=== PATIENT | female | born 1985 | race Caucasian/White ===

== ENCOUNTER 2016-11-06 12:54 | Emergency (ER) | payer OTHER ==
[2016-11-06] MEDS ORDERED: HYDROmorphONE/DILAUDID 1 MG/ML SYR IVP ONE (13:24)
[2016-11-06] MEDS ORDERED: ONDANSETRON 4 MG/2 ML VIAL IVP ONE (13:24)
[2016-11-06] MEDS ORDERED: NS 1,000 ML IV ONE (13:24)
[2016-11-06 13:49] LABS: % IMMATURE GRANULYOCYTES 0.3 % (0.0-1.1); ABSOLUTE IMMATURE GRANULOCYTES 0.02 10^3/uL (0.00-0.10); ADD DIFF? NO; ADD MORPH? NO; ADD SCAN? NO; ATYPICAL LYMPHOCYTE FLAG 0 (0-99); FRAGMENT RBC FLAG 10 (0-99); HEMOGLOBIN 14.2 g/dL (12.6-16.3); LEFT SHIFT FLG 0 (0-99); LIPEMIA HEMOLYSIS FLAG 80 (0-99); MEAN CELL HEMOGLOBIN 34.1 pg (27.9-34.1); MEAN CELL VOLUME 103.1 fL (81.5-99.8); MEAN PLATELET VOLUME 10.4 fL (8.7-11.7); PLATELET CLUMPS FLAG 0 (0-99); PLATELET COUNT 208 10^3/uL (150-400); RED BLOOD CELL COUNT 4.17 10^6/uL (4.18-5.33); RED CELL DISTRIBUTION WIDTH 12.4 % (11.5-15.2)
[2016-11-06 14:05] LABS: ALANINE AMINOTRANSFERASE 32 IU/L (9-52); ALBUMIN 4.6 g/dL (3.5-5.0); ALKALINE PHOSPHATASE 79 IU/L (38-126); ANION GAP 10 mEq/L (8-16); ASPARTATE AMINOTRANSFERASE 31 IU/L (14-46); BILIRUBIN,TOTAL 0.5 mg/dL (0.1-1.4); BILIRUBIN-CONJUGATED 0.2 mg/dL (0.0-0.5); BILIRUBIN-UNCONJUGATED 0.3 mg/dL (0.0-1.1); CALCIUM 10.1 mg/dL (8.5-10.4); CARBON DIOXIDE 27 mEq/l (22-31); CHLORIDE 100 mEq/L (97-110); CREATININE 0.9 mg/dL (0.6-1.0); GLOMERULAR FILTRATION RATE > 60; GLUCOSE 77 mg/dL (70-100); POTASSIUM 4.5 mEq/L (3.5-5.2); SODIUM 137 mEq/L (134-144); TOTAL PROTEIN 7.6 g/dL (6.3-8.2)
[2016-11-06] MEDS ORDERED: IOPAMIDOL (ISOVUE-300) 100 ML BTL IV ONE (14:13)
[2016-11-06 15:10] LABS: COLOR PALE YELLOW; LEUKOCYTE ESTERASE,URINE NEGATIVE (NEGATIVE); NITRITE,URINE NEGATIVE (NEGATIVE)
--- NOTE | 2016-11-06 15:44 | EDPHY ---
H & P Stated Complaint: lower abdo pain area since last night. Time Seen by Provider: 11/06/16 13:10 HPI/ROS: Chief complaint: Abdominal pain History of present illness: This is a 31-year-old female with a history of a bowel obstruction necessitating bowel resection who presents to the emergency department for evaluation of abdominal pain. Patient reports the onset of symptoms over the last few days. She denies precipitating factors. Denies alleviating factors. She denies other associated signs or symptoms including no fevers or chills, no nausea, vomiting, diarrhea or constipation, no urinary symptoms, no vaginal discharge. She states this does not feel like the bowel obstruction she had previously. Review of systems: A 10 point review of systems was obtained and other than described above was negative - Personal History LMP (Females 10-55): Now Current Tetanus Diphtheria and Acellular Pertussis (TDAP): No - Medical/Surgical History Hx Asthma: Yes Hx Chronic Respiratory Disease: No Hx Diabetes: No Hx Cardiac Disease: No Hx Renal Disease: No Hx Cirrhosis: No Hx Alcoholism: No Hx HIV/AIDS: No Hx Splenectomy or Spleen Trauma: No Other PMH: pmh- Ovarian cyst, anxiety. 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 Eyes: Pupils equal and round no pallor or injection. ENT, Mouth: Mucous membranes moist. Respiratory: There are no retractions, lungs are clear to auscultation. Cardiovascular: Regular rate and rhythm. Gastrointestinal: Bowel sounds normal. Abdomen is soft, nondistended, nontender. No peritoneal signs. Neurological: Alert and oriented x4. Strength and sensation intact and symmetrical. Skin: Warm and dry, no rashes. Musculoskeletal: Neck is supple nontender. Extremities are symmetrical, full range of motion. Psychiatric: Patient is oriented X 3, there is no agitation. Constitutional: Initial Vital Signs Temperature (C) 36.3 C 11/06/16 13:00 Heart Rate 66 11/06/16 13:00 Respiratory Rate 18 11/06/16 13:00 Blood Pressure 116/64 11/06/16 13:00 O2 Sat (%) 99 11/06/16 13:00 O2 Delivery Mode Room Air O2 (L/minute) 2 Allergies/Adverse Reactions: gluten Allergy (Verified 11/01/14 00:29) Milk Containing Products Allergy (Verified 11/01/14 00:29) Home Medications: Medication Instructions Recorded Anikayl 07/28/16 Magnesium Citrate [Magnesium 300 ml PO ONCE #1 bottle 11/06/16 Citrate 300 ml (*)] Medical Decision Making ED Course/Re-evaluation: Patient discussed with my secondary supervising physician Dr. Carlos Cano. Patient presents to the emergency department for evaluation of abdominal pain. On presentation she is nontoxic. Afebrile and vital signs are stable. Initial physical exam is unremarkable including a benign abdominal exam. Serial abdominal exams are performed and remain unremarkable in the emergency room. Blood studies and urinalysis are unremarkable. CT scan shows constipation with no evidence of obstruction. At this time I do believe patient is appropriate for outpatient management. She is discharged home. Management of her constipation is discussed including the use of magnesium citrate. She is requesting pain management. I have discussed with her that this could exacerbate the underlying problem that she is currently dealing with as this is a constipating medication, she understands this but would like pain management. She is asked to follow up with her primary care doctor this week for recheck. Strict return precautions are given. Patient voiced understanding and agreement with plan. Differential Diagnosis: Included but not limited to bowel obstruction, colitis, diverticulitis, biliary tract disease, pancreatitis, urinary tract disease - Data Points Laboratory Results: Laboratory Results 11/06/16 13:40 11/06/16 13:40 11/06/16 11/06/16 11/06/16 14:00 13:40 13:40 WBC RBC Hgb Hct MCV MCH MCHC RDW Plt Count MPV Neut % (Auto) Lymph % (Auto) [place] % (Auto) Eos % (Auto) Baso % (Auto) Nucleat RBC Rel Count Absolute Neuts (auto) Absolute Lymphs (auto) Absolute Monos (auto) Absolute Eos (auto) Absolute Basos (auto) Absolute Nucleated RBC Immature Gran % Immature Gran # Sodium 137 mEq/L mEq/L (134-144) Potassium 4.5 mEq/L mEq/L (3.5-5.2) Chloride 100 mEq/L mEq/L (97-110) Carbon Dioxide 27 mEq/l mEq/l (22-31) Anion Gap 10 mEq/L mEq/L (8-16) BUN 11 mg/dL mg/dL (7-23) Creatinine 0.9 mg/dL mg/dL (0.6-1.0) Estimated GFR > 60 Glucose 77 mg/dL mg/dL (70-100) Calcium 10.1 mg/dL mg/dL (8.5-10.4) Total Bilirubin 0.5 mg/dL mg/dL (0.1-1.4) Conjugated Bilirubin 0.2 mg/dL mg/dL (0.0-0.5) Unconjugated Bilirubin 0.3 mg/dL mg/dL (0.0-1.1) AST 31 IU/L IU/L (14-46) ALT 32 IU/L IU/L (9-52) Alkaline Phosphatase 79 IU/L IU/L (38-126) Total Protein 7.6 g/dL g/dL (6.3-8.2) Albumin 4.6 g/dL g/dL (3.5-5.0) Lipase 146.0 IU/L IU/L (23-300) Beta HCG, Qual NEGATIVE Urine Color PALE YELLOW Urine Appearance CLEAR Urine pH 7.0 (5.0-7.5) Ur Specific [place] 1.011 (1.002-1.030) Urine Protein NEGATIVE (NEGATIVE) Urine Ketones NEGATIVE (NEGATIVE) Urine Blood NEGATIVE (NEGATIVE) Urine Nitrate NEGATIVE (NEGATIVE) Urine Bilirubin NEGATIVE (NEGATIVE) Urine Urobilinogen NEGATIVE EU EU (0.2-1.0) Ur Leukocyte Esterase NEGATIVE (NEGATIVE) Ur Culture Indicated? NOT INDICATED (NI) Urine Glucose NEGATIVE (NEGATIVE) 11/06/16 13:40 WBC 6.36 10^3/uL 10^3/uL (3.80-9.50) RBC 4.17 10^6/uL L 10^6/uL (4.18-5.33) Hgb 14.2 g/dL g/dL (12.6-16.3) Hct 43.0 % % (38.0-47.0) MCV 103.1 fL H fL (81.5-99.8) MCH 34.1 pg pg (27.9-34.1) MCHC 33.0 g/dL g/dL (32.4-36.7) RDW 12.4 % % (11.5-15.2) Plt Count 208 10^3/uL 10^3/uL (150-400) MPV 10.4 fL fL (8.7-11.7) Neut % (Auto) 66.2 % % (39.3-74.2) Lymph % (Auto) 21.7 % % (15.0-45.0) Sumner % (Auto) 8.0 % % (4.5-13.0) Eos % (Auto) 3.0 % % (0.6-7.6) Baso % (Auto) 0.8 % % (0.3-1.7) Nucleat RBC Rel Count 0.0 % % (0.0-0.2) Absolute Neuts (auto) 4.21 10^3/uL 10^3/uL (1.70-6.50) Absolute Lymphs (auto) 1.38 10^3/uL 10^3/uL (1.00-3.00) Absolute Monos (auto) 0.51 10^3/uL 10^3/uL (0.30-0.80) Absolute Eos (auto) 0.19 10^3/uL 10^3/uL (0.03-0.40) Absolute Basos (auto) 0.05 10^3/uL 10^3/uL (0.02-0.10) Absolute Nucleated RBC 0.00 10^3/uL 10^3/uL (0-0.01) Immature Gran % 0.3 % % (0.0-1.1) Immature Gran # 0.02 10^3/uL 10^3/uL (0.00-0.10) Sodium Potassium Chloride Carbon Dioxide Anion Gap BUN Creatinine Estimated GFR Glucose Calcium Total Bilirubin Conjugated Bilirubin Unconjugated Bilirubin AST ALT Alkaline Phosphatase Total Protein Albumin Lipase Beta HCG, Qual Urine Color Urine Appearance Urine pH Ur Specific [place] Urine Protein Urine Ketones Urine Blood Urine Nitrate Urine Bilirubin Urine Urobilinogen Ur Leukocyte Esterase Ur Culture Indicated? Urine Glucose Medications Given: Discontinued Medications Hydrocodone Bitart/Acetaminophen ([place] 5/325mg Prepack#6) 1 btl TAKEHOME EDNOW ONE Stop: 11/06/16 16:08 Last Admin: 11/06/16 16:11 Dose: 1 btl Hydromorphone HCl (Dilaudid) 1 mg IVP EDNOW ONE Stop: 11/06/16 13:25 Last Admin: 11/06/16 13:43 Dose: 1 mg Sodium Chloride (Ns) 1,000 mls @ 0 mls/hr IV ONCE ONE PRN Reason: Wide Open Stop: 11/06/16 13:25 Last Admin: 11/06/16 13:43 Dose: 1,000 mls Ondansetron HCl (Zofran) 4 mg IVP EDNOW ONE Stop: 11/06/16 13:25 Last Admin: 11/06/16 13:43 Dose: 4 mg Departure - Departure Disposition: Home, Routine, Self-Care Clinical Impression: Abdominal pain Qualifiers: Abdominal location: unspecified location Qualified Code(s): R10.9 - Unspecified abdominal pain Constipation Qualifiers: Constipation type: unspecified constipation type Qualified Code(s): K59.00 - Constipation, unspecified Condition: Good Instructions: Constipation (ED), Abdominal Pain (ED) Additional Instructions: Follow-up with her primary care doctor in 1-2 days for recheck Use magnesium citrate as directed If symptoms worsen or new symptoms develop return to the emergency department for recheck Referrals: MAGED KAMINSKI [Other] - As per Instructions Rod Ayala MD [Medical Doctor] - As per Instructions Prescriptions: Magnesium Citrate [Magnesium Citrate 300 ml (*)] 300 ml PO ONCE #1 bottle
[2016-11-06 16:04] VITALS: PULSE 50; RESP 20; TEMP 98.2; O2SAT 98
[2016-11-06] MEDS ORDERED: HYDROCOD/APAP 5/325 PREPACK#6 BTL TAKEHOME ONE (16:07)
[2016-11-06 16:16] VITALS: BP 102/74
== END 2016-11-06 16:23 | disposition home or self-care (01) ==
DX: K59.00 Constipation, unspecified (principal); J45.909 Unspecified asthma, uncomplicated; Z87.891 Personal history of nicotine dependence
CPT/HCPCS: 96374; J1170; J2405; Q9967

== ENCOUNTER 2018-11-21 10:09 | Emergency (ER) | payer MEDICAID, OTHER ==
--- NOTE | 2018-11-21 10:24 | EDPHY ---
H & P Stated Complaint: ARTIS/blurry vision Time Seen by Provider: 11/21/18 10:23 HPI/ROS: HPI: This is 33-year-old female who presents with Chief Complaint: Headache, blurry vision Location: Frontal Quality: Pressure, headache, blurry vision Duration: years Signs and Symptoms: no fever, no nausea, no vomiting, no photophobia, no noise sensitivity, no neck stiffness, no ear pain, no tinnitus, no nasal congestion, no sinus pressure, no weakness, no radiation, no aura Timing: Worse over the last week Severity: Moderate Context: Patient reports for the last several years she has been having frontal headaches with bilateral pressure behind her eyes that waxes and wanes and accompanied with blurry vision described as floaters and a "snow globe affect. Patient reports that the symptoms have increased over the last week. She has not followed with Neurology and has only follow-up with holistic medicine. She believes that she may have multiple sclerosis but has never had an MRI. She reports that she has "gut issues" and had colectomy in 2014 and then last year medical management of small-bowel obstruction while in [place]. Patient denies any change in bowel or bladder habits. She has no weakness, radiation, fevers. The headaches are not the worst of her life. She denies any weight loss, speech changes, vision loss, eye pain, hearing loss, tinnitus, rashes, nausea, vomiting, fever. History of migraine headaches. Reports that she has seen pcp and a neurologist for similar sx with no dx. Patient reports that her last eye exam was several years ago and she is supposed to wear corrective lenses which she does not wear. Denies worse headache of life. Modifying Factors: Comment: ROS: A comprehensive 10 system review of systems is otherwise negative aside from elements mentioned in the history of present illness. 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 Currently on menses. Social history: Former smoker. Family history noncontributory. CONSTITUTIONAL: Tearful, well-appearing, adult white female, awake and alert, no obvious distress HEENT: Atraumatic and normocephalic, PERRL, EOMI. Nares patent; no rhinorrhea; no nasal mucosal edema. Tympanic membranes clear. Oropharynx clear, no exudate and moist pink mucosa. Airway patent. No lymphadenopathy. No meningismus. Cardiovascular: Normal S1/S2, regular rate, regular rhythm, without murmur rub or gallop. PULMONARY/CHEST: Symmetrical and nontender. Clear to auscultation bilaterally. Good air movement. No accessory muscle usage. ABDOMEN: Soft, nondistended, nontender, no rebound, no guarding, no peritoneal signs, no masses or organomegaly. No CVAT. EXTREMITIES: 2/2 pulses, strength 5/5, no deformities, no clubbing, no cyanosis or edema. NEUROLOGICAL: no focal neuro deficits. GCS 15. Cranial nerves 2-12 grossly intact. Normal Romberg testing. Speech clear. SKIN: Warm and dry, tattoos present on right forearm, no erythema. no rash. Good capillary refill. Source: Patient Exam Limitations: No limitations - Personal History LMP (Females 10-55): 1-7 Days Ago Current Tetanus/Diphtheria Vaccine: Unsure - Medical/Surgical History Hx Asthma: Yes Hx Chronic Respiratory Disease: No Hx Diabetes: No Hx Cardiac Disease: No Hx Renal Disease: No Hx Cirrhosis: No Hx Alcoholism: No Hx HIV/AIDS: No Hx Splenectomy or Spleen Trauma: No Other PMH: pmh- Ovarian cyst, anxiety. 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 - Social History Smoking Status: Former smoker Constitutional: Initial Vital Signs Temperature (C) 36.6 C 11/21/18 10:12 Heart Rate 85 11/21/18 10:12 Respiratory Rate 16 11/21/18 10:12 Blood Pressure 116/77 11/21/18 10:12 O2 Sat (%) 97 11/21/18 10:12 O2 Delivery Mode Room Air Allergies/Adverse Reactions: gluten Allergy (Verified 11/21/18 10:15) Milk Containing Products Allergy (Verified 11/21/18 10:15) Home Medications: Medication Instructions Recorded Pia 07/28/16 Magnesium Citrate [Magnesium 300 ml PO ONCE #1 bottle 11/06/16 Citrate 300 ml (*)] Medical Decision Making - Diagnostics Imaging Results: Imaging Impressions Brain MRI 11/21/18 10:32 Impression: 1. Normal MRI brain. No change since prior study. If symptoms worsen, additional imaging may be necessary. Findings discussed with Racquel Orellana PAC at 13:47 hour, 11/21/2018. Cervical Spine MRI 11/21/18 10:32 Impression: 1. Minimal features of degenerative disk disease within the lower cervical spine , with a small right paracentral disk protrusion at C6-C7. 2. Normal MRI signal characteristics within the cervical spinal cord, without features of demyelinating plaque. ED Course/Re-evaluation: Vital signs reviewed and stable upon arrival. IV access, laboratory studies, MRI brain, MRI cervical ordered Visual acuity: Left 20/25, right 20/25, bilateral 20/25 NIHSS=0 1044: RN asking for pain medications for headache. Will give IV Decadron 10 mg , IV Reglan 10 mg, IV Benadryl 25 mg 1045: Labs reviewed. No leukocytosis, macrocytosis without anemia noted, no platelet dysfunction, electrolyte imbalance, no acute kidney injury, elevated liver enzymes, pancreatitis, . 1220: Called by radiologist, Dr. Murry, who advised that cervical MR shows no lesions concerning for MS, mild degenerative disc disease with mild disc herniation at C6-C7 but no significant stenosis or cord impingement. 1400: Notified by radiologist, Dr. Murry, that MRI of the brain is unremarkable. Reassessed patient who is ambulating in room and does not complain of headache. Patient reports that she has a follow-up appointment with Rheumatology. Will give Neurology referral This patient was seen under the supervision of my secondary supervising physician. I evaluated care for this patient with attending. Differential Diagnosis: Headache including but not limited to subarachnoid hemorrhage, migraine headache , tension headache and infectious causes such as meningitis, pharyngitis and sinusitis. - Data Points Laboratory Results: Laboratory Results 11/21/18 10:30 11/21/18 10:30 11/21/18 11/21/18 11/21/18 10:35 10:30 10:30 WBC RBC Hgb POC Hgb 15.0 gm/dL gm/dL (12.6-16.3) Hct POC Hct 44 % % (38-47) MCV MCH MCHC RDW Plt Count MPV Neut % (Auto) Lymph % (Auto) Luce % (Auto) Eos % (Auto) Baso % (Auto) Nucleat RBC Rel Count Absolute Neuts (auto) Absolute Lymphs (auto) Absolute Monos (auto) Absolute Eos (auto) Absolute Basos (auto) Absolute Nucleated RBC Immature Gran % Immature Gran # POC Sodium 138 mEq/L mEq/L (135-145) Sodium 136 mEq/L mEq/L (135-145) POC Potassium 4.3 mEq/L mEq/L (3.3-5.0) Potassium 4.7 mEq/L mEq/L (3.5-5.2) POC Chloride 105 mEq/L mEq/L (97-110) Chloride 103 mEq/L mEq/L (97-110) Carbon Dioxide 22 mEq/l mEq/l (22-31) POC Total CO2 23 mEq/L mEq/L (22-31) Anion Gap 11 mEq/L mEq/L (6-14) POC BUN 19 mg/dL mg/dL (7-23) BUN 19 mg/dL mg/dL (7-23) Creatinine 0.8 mg/dL mg/dL (0.6-1.0) POC Creatinine 0.9 mg/dL mg/dL (0.6-1.0) Estimated GFR > 60 Glucose 83 mg/dL mg/dL (70-100) POC Glucose 87 mg/dL mg/dL (70-100) Calcium 10.0 mg/dL mg/dL (8.5-10.4) Magnesium 2.0 mg/dL mg/dL (1.6-2.3) Total Bilirubin 0.4 mg/dL mg/dL (0.1-1.4) Conjugated Bilirubin 0.3 mg/dL mg/dL (0.0-0.5) Unconjugated Bilirubin 0.1 mg/dL mg/dL (0.0-1.1) AST 28 IU/L IU/L (14-46) ALT 29 IU/L IU/L (9-52) Alkaline Phosphatase 80 IU/L IU/L (38-126) Total Protein 7.7 g/dL g/dL (6.3-8.2) Albumin 4.8 g/dL g/dL (3.5-5.0) Beta HCG, Qual NEGATIVE 11/21/18 10:30 WBC 4.22 10^3/uL 10^3/uL (3.80-9.50) RBC 4.18 10^6/uL 10^6/uL (4.18-5.33) Hgb 14.3 g/dL g/dL (12.6-16.3) POC Hgb Hct 42.0 % % (38.0-47.0) POC Hct MCV 100.5 fL H fL (81.5-99.8) MCH 34.2 pg H pg (27.9-34.1) MCHC 34.0 g/dL g/dL (32.4-36.7) RDW 12.7 % % (11.5-15.2) Plt Count 218 10^3/uL 10^3/uL (150-400) MPV 10.0 fL fL (8.7-11.7) Neut % (Auto) 48.0 % % (39.3-74.2) Lymph % (Auto) 36.0 % % (15.0-45.0) Luce % (Auto) 7.8 % % (4.5-13.0) Eos % (Auto) 6.6 % % (0.6-7.6) Baso % (Auto) 1.4 % % (0.3-1.7) Nucleat RBC Rel Count 0.0 % % (0.0-0.2) Absolute Neuts (auto) 2.02 10^3/uL 10^3/uL (1.70-6.50) Absolute Lymphs (auto) 1.52 10^3/uL 10^3/uL (1.00-3.00) Absolute Monos (auto) 0.33 10^3/uL 10^3/uL (0.30-0.80) Absolute Eos (auto) 0.28 10^3/uL 10^3/uL (0.03-0.40) Absolute Basos (auto) 0.06 10^3/uL 10^3/uL (0.02-0.10) Absolute Nucleated RBC 0.00 10^3/uL 10^3/uL (0-0.01) Immature Gran % 0.2 % % (0.0-1.1) Immature Gran # 0.01 10^3/uL 10^3/uL (0.00-0.10) POC Sodium Sodium POC Potassium Potassium POC Chloride Chloride Carbon Dioxide POC Total CO2 Anion Gap POC BUN BUN Creatinine POC Creatinine Estimated GFR Glucose POC Glucose Calcium Magnesium Total Bilirubin Conjugated Bilirubin Unconjugated Bilirubin AST ALT Alkaline Phosphatase Total Protein Albumin Beta HCG, Qual Medications Given: Discontinued Medications Dexamethasone (Decadron Injection) 10 mg IVP EDNOW ONE Stop: 11/21/18 10:45 Last Admin: 11/21/18 10:54 Dose: 10 mg Diphenhydramine HCl (Benadryl Injection) 25 mg IVP EDNOW ONE Stop: 11/21/18 10:45 Last Admin: 11/21/18 10:54 Dose: 25 mg Metoclopramide HCl (Reglan Injection) 10 mg IVP EDNOW ONE Stop: 11/21/18 10:45 Last Admin: 11/21/18 10:55 Dose: 10 mg Point of Care Test Results: Chemistry 11/21/18 10:35 POC Sodium 138 mEq/L mEq/L (135-145) POC Potassium 4.3 mEq/L mEq/L (3.3-5.0) POC Chloride 105 mEq/L mEq/L (97-110) POC Total CO2 23 mEq/L mEq/L (22-31) POC BUN 19 mg/dL mg/dL (7-23) POC Creatinine 0.9 mg/dL mg/dL (0.6-1.0) POC Glucose 87 mg/dL mg/dL (70-100) ISTAT H&H 11/21/18 10:35 POC Hgb 15.0 gm/dL gm/dL (12.6-16.3) POC Hct 44 % % (38-47) Departure - Departure Disposition: Home, Routine, Self-Care Clinical Impression: Cervical disc herniation, Degenerative disc disease, cervical Cephalgia Qualifiers: Headache type: unspecified Headache chronicity pattern: chronic headache Intractability: not intractable Qualified Code(s): R51 - Headache Condition: Good Instructions: Acute Headache (ED) Additional Instructions: Please keep follow-up appointment with Rheumatology. Make follow-up appointment with Neurology. Return to the ER immediately if you have progressive headaches, neurologic deficits, gait abnormality, visual disturbance, slurred speech, or any other symptom that concerns you. Referrals: Layo Mccrary DO [Primary Care Provider] - As per Instructions Louie Marino MD [Medical Doctor] - As per Instructions
[2018-11-21 10:39] LABS: PLATELET COUNT 218 10^3/uL (150-400)
[2018-11-21] MEDS ORDERED: DEXAMETHASONE 10 MG/ML VIAL IVP ONE (10:44)
[2018-11-21] MEDS ORDERED: METOCLOPRAMIDE 10 MG/2 ML VIAL IVP ONE (10:44)
[2018-11-21] MEDS ORDERED: GADOBUTROL 10 ML VIAL IVP ONE (11:22)
[2018-11-21 14:21] VITALS: BP 122/88
== END 2018-11-21 14:21 | disposition home or self-care (01) ==
DX: R51 Headache (principal); M50.823 Other cervical disc disorders at C6-C7 level; M50.323 Other cervical disc degeneration at C6-C7 level
CPT/HCPCS: 82435-PO; 82565-PO; 82947-PO; 84132-PO; 84295-PO; 84520-PO; 85014-ER; 96374; A9585; J1100; J1200; J2765

== ENCOUNTER 2019-01-20 18:50 | Emergency (ER) | payer MEDICAID ==
[2019-01-20] MEDS ORDERED: KETOROLAC 30 MG/1 ML SDV IVP ONE (19:06)
[2019-01-20] MEDS ORDERED: ONDANSETRON 4 MG/2 ML VIAL IVP ONE ×2 (19:06→19:58)
--- NOTE | 2019-01-20 19:06 | EDPHY ---
HPI/HX/ROS/PE/MDM Narrative: CHIEF COMPLAINT: Abdominal pain HPI: This patient is a 33 year old female with history of prior bowel obstructions s/ p multiple resections. For the past several days, she has noted nausea and bloating with abdominal discomfort increasing over the past day. She notes this is similar to her prior presentation with obstruction. She did have a bowel movement shortly prior to arrival, but this was the case with her obstruction last summer while in [place]. She has had two resections secondary to this with complications including ischemic bowel. Patient denies fever, vomiting, melena , hematochezia, chest pain, shortness of breath, headache, or other associated symptoms. REVIEW OF SYSTEMS: A comprehensive 10 system review of systems is otherwise negative aside from elements mentioned in the history of present illness and medical decision making. PMH: Ovarian cyst. Anxiety. 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 SOCIAL HISTORY: Single. Employed. Lives in [place]. PHYSICAL EXAM: General:Patient is alert, in no acute distress. ENT:Eyes are normal to inspection. ENT inspection normal. Neck: Normal inspection. Full range of motion. Respiratory:No respiratory distress. Breath sounds normal bilaterally. Cardiovascular: Regular rate and rhythm. Strong peripheral pulses. Normal cap refill. Abdomen:The abdomen is nontender to palpation. There are no peritoneal signs. There are normal bowel sounds. Back: Normal to inspection. No tenderness to palpation. Skin: Normal color. No rash. Warm and dry. Extremities: Normal appearance. Full range of motion. Neuro: Oriented x3. Normal motor function. Normal sensory function. ED Course: 33 y/o female with history of prior bowel obstructions s/p multiple resections presents with abdominal discomfort, primarily nausea and bloating. Plan for labs , abdominal x-ray. Plan to administer 4mg IV Zofran, 15mg IV Toradol. Plan for I -stat Chem8. Patient requests BHCG as well. I-stat Chem8 unremarkable. BHCG negative. X-ray shows nonspecific bowel gas pattern. Plan for CT for further evaluation. 20:[address] Fournier, radiologist. CT abdomen/pelvis is negative for acute processes. Reassessed patient. Discussed imaging and laboratory results. She is relieved there is no evidence of bowel obstruction today. Plan to discharge home in good condition with prescription for Zofran for nausea. Follow up and return precautions discussed. The patient is comfortable with this plan. - Data Points Imaging Results: Imaging Impressions Abdomen X-Ray 01/20/19 19:07 Impression: Nonspecific bowel gas pattern. Imaging: Discussed imaging studies w/ call center specialist Radiologist, I viewed and interpreted images myself Laboratory Results: 01/20/19 01/20/19 19:53 19:00 POC Hgb 15.3 gm/dL gm/dL (12.6-16.3) POC Hct 45 % % (38-47) POC Sodium 139 mEq/L mEq/L (135-145) POC Potassium 4.0 mEq/L mEq/L (3.3-5.0) POC Chloride 105 mEq/L mEq/L (97-110) POC Total CO2 24 mEq/L mEq/L (22-31) POC BUN 29 mg/dL H mg/dL (7-23) POC Creatinine 1.1 mg/dL H mg/dL (0.6-1.0) POC Glucose 94 mg/dL mg/dL (70-100) Beta HCG, Qual NEGATIVE Medications Given: Discontinued Medications Ketorolac Tromethamine (Toradol) 15 mg IVP EDNOW ONE Stop: 01/20/19 19:07 Last Admin: 01/20/19 19:17 Dose: 15 mg Morphine Sulfate (Morphine) 4 mg IVP EDNOW ONE Stop: 01/20/19 19:59 Last Admin: 01/20/19 20:02 Dose: 4 mg Ondansetron HCl (Zofran) 4 mg IVP EDNOW ONE Stop: 01/20/19 19:07 Last Admin: 01/20/19 19:17 Dose: 4 mg Ondansetron HCl (Zofran) 4 mg IVP EDNOW ONE Stop: 01/20/19 19:59 Last Admin: 01/20/19 20:02 Dose: 4 mg Point of Care Test Results: Chemistry 01/20/19 19:53 POC Sodium 139 mEq/L mEq/L (135-145) POC Potassium 4.0 mEq/L mEq/L (3.3-5.0) POC Chloride 105 mEq/L mEq/L (97-110) POC Total CO2 24 mEq/L mEq/L (22-31) POC BUN 29 mg/dL H mg/dL (7-23) POC Creatinine 1.1 mg/dL H mg/dL (0.6-1.0) POC Glucose 94 mg/dL mg/dL (70-100) ISTAT H&H 01/20/19 19:53 POC Hgb 15.3 gm/dL gm/dL (12.6-16.3) POC Hct 45 % % (38-47) General Time Seen by Provider: 01/20/19 19:00 Initial Vital Signs: Initial Vital Signs Temperature (C) 36.5 C 01/20/19 18:53 Heart Rate 62 01/20/19 18:53 Respiratory Rate 18 01/20/19 18:53 Blood Pressure 121/90 H 01/20/19 18:53 O2 Sat (%) 98 01/20/19 18:53 O2 Delivery Mode Room Air Allergies/Adverse Reactions: gluten Allergy (Verified 01/20/19 18:56) Milk Containing Products Allergy (Verified 01/20/19 18:56) Home Medications: Medication Instructions Recorded Bentyl 07/28/16 Magnesium Citrate [Magnesium 300 ml PO ONCE #1 bottle 11/06/16 Citrate 300 ml (*)] Ondansetron Odt [Zofran Odt] 4 mg PO Q4PRN PRN #10 tab 01/20/19 Departure - Departure Disposition: Home, Routine, Self-Care Clinical Impression: Nausea Condition: Good Instructions: Ondansetron (By mouth), Acute Nausea and Vomiting (ED), Abdominal Pain (ED) Additional Instructions: Follow-up with your primary doctor within 72 hours. Take Zofran as prescribed as needed for nausea. Return to the Emergency Department for worsening pain, fever, severe vomiting, change in character or severity of pain or other worsening of condition. Referrals: Layo Mccrary, [Primary Care Provider] - As per Instructions Prescriptions: Ondansetron Odt [Zofran Odt] 4 mg PO Q4PRN PRN #10 tab PRN Reason: Nausea Report Scribed for: Nnamdi Ferreira Report Scribed by: Radha Oropeza Date of Report: 01/20/19 Time of Report: 20:41 Physician Review and Approval Statement: Portions of this note were transcribed by an ED scribe. I personally performed the history, physical exam, and medical decision making; and confirm the accuracy of the information in the transcribed note.
[2019-01-20] MEDS ORDERED: IOPAMIDOL (ISOVUE-300) 100 ML BTL ONE (19:45)
[2019-01-20 20:26] VITALS: BP 122/75
[2019-01-20] MEDS ORDERED: ONDANSETRON 4MG PREPACK#2 BTL TAKEHOME ONE (20:40)
== END 2019-01-20 20:53 | disposition home or self-care (01) ==
DX: R11.2 Nausea with vomiting, unspecified (principal); Z90.49 Acquired absence of other specified parts of digestive tract
CPT/HCPCS: 82435-PO; 82565-PO; 82947-PO; 84132-PO; 84295-PO; 84520-PO; 85014-ER; 96374; J1885; J2270; J2405; Q9967